=== PATIENT | male | born 1985 | race Two or more races ===

== ENCOUNTER 2017-04-14 19:26 | Emergency (ER) | payer OTHER ==
[~2017-04-14] VITALS: Ht 180.3 cm; Wt 82.1 kg
[2017-04-14 19:27] VITALS: BP 128/84
== END 2017-04-14 20:43 | disposition home or self-care (01) ==
LOC: ED 20:30
DX: L20.9 Atopic dermatitis, unspecified (principal); L30.9 Dermatitis, unspecified
CPT/HCPCS: 99283